=== PATIENT | male | born 1980 | race American Indian/Alaskan Native ===

== ENCOUNTER 2022-03-05 18:56 | Emergency (ER) | payer SELFPAY ==
[2022-03-05 21:12] VITALS: BP 152/95
== END 2022-03-06 00:30 | disposition left against medical advice (07) ==
LOC: ED 18:56
DX: Z04.1 Encounter for examination and observation following transport accident (principal); V89.2XXA Person injured in unspecified motor-vehicle accident, traffic, initial encounter; Y93.89 Activity, other specified; Y92.89 Other specified places as the place of occurrence of the external cause; Y99.8 Other external cause status